=== PATIENT | male | born 1960 | race Caucasian/White ===

== ENCOUNTER 2020-09-28 07:16 | Emergency (ER) | payer OTHER, MEDICARE ==
[2020-09-28 09:30] LABS: BASOPHIL 0.6 % (0-2); EOSINOPHIL 0 % (0-5); HCT 49.7 % (42.0-52.0); HGB 16.2 g/dl (13.2-18.0); LYMPHOCYTE 19.3 % (15-48); MCH 29.7 pg (25.0-31.0); MCHC 32.6 g/dL (32.0-36.0); MPV 9.1 fL (6.0-9.5); NEUTROPHIL 67.3 % (41-80); NRBC 0; PLT 159 K/uL (150-400); RBC 5.46 M/uL (4.70-6.00); RDW 13.8 % (11.5-14.0); WBC 3.6 K/uL (4.0-10.5)
[2020-09-28 09:35] LABS: INR 1.13 (0.9-1.2); PROTHROMBIN TIME 13.8 SECONDS (11.4-13.6); PTT 28.3 SECONDS (22.2-34.7)
[2020-09-28 09:36] LABS: D-DIMER 2.43 ug/mLFEU (0.00-0.41)
[2020-09-28 09:38] LABS: PRO-BNP 24 pg/mL (<125)
[2020-09-28 09:39] LABS: ALBUMIN 2.9 g/dL (3.4-5.0); BILIRUBIN - TOTAL 0.2 mg/dL (0.2-1.0); BUN/CREAT RATIO (CALC) 17.2 RATIO; C-REACTIVE PROTEIN 2.9 mg/dL (<=0.90); CREATININE 0.93 mg/dL (0.67-1.17); GLOBULIN (CALCULATION) 3.2 g/dL; TOTAL PROTEIN 6.1 g/dL (6.4-8.2)
[2020-09-28 12:53] LABS: IRON % SATURATION 12.4 %SAT (20-50)
== END 2020-09-28 12:55 | disposition home or self-care (01) ==
LOC: FER 07:16
PROVIDERS: Emergency Medicine
DX: U07.1 COVID-19 (principal); E61.1 Iron deficiency; R53.81 Other malaise
CPT/HCPCS: 36415; 36600; 71250; 80053; 82728; 82803; 83540; 83550; 83605; 83615; 83735; 83880; 84145; 84484; 85025; 85379; 85610; 85730; 86140; 87040; 93005; J1885; J7030

== ENCOUNTER 2020-09-30 11:40 | Day surgery (SDCO) | payer OTHER, MEDICARE ==
[2020-09-30] MEDS ORDERED: ACID REDUCER200 MG PO (12:32)
[2020-09-30] MEDS ORDERED: ALLEGRA ALLERG180 MG PO (12:32)
[2020-09-30] MEDS ORDERED: BACLOFEN 10MG T10 MG PO (12:32)
[2020-09-30] MEDS ORDERED: FLONASE ALLER15.8 ML (12:33)
[2020-09-30] MEDS ORDERED: XANAX0.5 MG PO (12:34)
[2020-09-30] MEDS ORDERED: PERCOCET 5-3251 EACH PO (12:34)
[2020-09-30] MEDS ORDERED: ACIPHEX20 MG PO (12:34)
[2020-09-30] MEDS ORDERED: COLACE100 MG PO (12:35)
[2020-09-30 16:23] LABS: BASOPHIL 0.4 % (0-2); EOSINOPHIL 0.4 % (0-5); HGB 14.7 g/dl (13.2-18.0); LYMPHOCYTE 31.3 % (15-48); MCH 29.2 pg (25.0-31.0); MCHC 32.7 g/dL (32.0-36.0); MCV 89.5 fL (78.0-100.0); MONOCYTE 13.7 % (0-12); MPV 9.2 fL (6.0-9.5); NEUTROPHIL 53.8 % (41-80); NRBC 0; PLT 109 K/uL (150-400); RBC 5.03 M/uL (4.70-6.00); RDW 13.8 % (11.5-14.0); WBC 2.6 K/uL (4.0-10.5)
[2020-09-30 16:51] LABS: ALBUMIN 2.5 g/dL (3.4-5.0); BILIRUBIN - TOTAL 0.2 mg/dL (0.2-1.0); BUN/CREAT RATIO (CALC) 14.5 RATIO; C-REACTIVE PROTEIN 8.1 mg/dL (<=0.90); CREATININE 0.83 mg/dL (0.67-1.17); GLOBULIN (CALCULATION) 3.5 g/dL; MAGNESIUM 2.1 mg/dL (1.8-2.4); POTASSIUM 3.9 mmol/L (3.5-5.1)
[2020-09-30 18:00] LABS: BILIRUBIN NEGATIVE (NEGATIVE); BLOOD NEGATIVE Ery/uL (NEGATIVE); CLARITY CLEAR (CLEAR); COLOR YELLOW (YELLOW); GLUCOSE (U) NORMAL (NORMAL); LEUKOCYTES NEGATIVE Leu/uL (NEGATIVE); NITRITE NEGATIVE (NEGATIVE); PROTEIN NEGATIVE (NEGATIVE); SPECIFIC GRAVITY 1.015 (1.001-1.030); UROBILINOGEN 0.2 mg/dL (0.2-1.0)
[2020-10-02 06:51] LABS: BASOPHIL 0 % (0-2); EOSINOPHIL 0 % (0-5); HCT 42.7 % (42.0-52.0); HGB 14.4 g/dl (13.2-18.0); LYMPHOCYTE 10.9 % (15-48); MCH 30.2 pg (25.0-31.0); MCHC 33.7 g/dL (32.0-36.0); MCV 89.5 fL (78.0-100.0); MONOCYTE 6.5 % (0-12); MPV 9.6 fL (6.0-9.5); NEUTROPHIL 82.1 % (41-80); NRBC 0; PLT 150 K/uL (150-400); RBC 4.77 M/uL (4.70-6.00); RDW 13.9 % (11.5-14.0)
[2020-10-02 06:55] LABS: WBC 6.1 K/uL (4.0-10.5)
[2020-10-02 07:21] LABS: ALBUMIN 2.4 g/dL (3.4-5.0); BILIRUBIN - TOTAL 0.2 mg/dL (0.2-1.0); BUN/CREAT RATIO (CALC) 16.4 RATIO; C-REACTIVE PROTEIN 4.7 mg/dL (<=0.90); CREATININE 0.67 mg/dL (0.67-1.17); GLOBULIN (CALCULATION) 3.4 g/dL; POTASSIUM 3.9 mmol/L (3.5-5.1); TOTAL PROTEIN 5.8 g/dL (6.4-8.2)
[2020-10-02] MEDS ORDERED: ROBITUSSIN W/COD5 ML PO (11:51)
[2020-10-02] MEDS ORDERED: ASCORBIC ACID500 MG PO (11:51)
[2020-10-02] MEDS ORDERED: ZINC SULFATE220 MG PO (11:51)
[2020-10-02] MEDS ORDERED: B-1100 MG PO (11:51)
[2020-10-02] MEDS ORDERED: VITAMIN D310 MC3 PO (11:51)
[2020-10-02] MEDS ORDERED: DEXAMETHASONE 2M2 MG PO (11:51)
--- NOTE | 2020-10-02 15:06 | NUR ---
10/02/20 Patient lives at home with spouse. No discharge planning needs are anticipated.
== END 2020-10-02 14:40 | disposition home or self-care (01) ==
LOC: FMS 11:40
PROVIDERS: ADMIT Internal Medicine
DX: U07.1 COVID-19 (principal); J12.82 Pneumonia due to coronavirus disease 2019; M54.5 Low back pain; K21.9 Gastro-esophageal reflux disease without esophagitis; G47.30 Sleep apnea, unspecified; F41.9 Anxiety disorder, unspecified; E86.0 Dehydration; Z90.49 Acquired absence of other specified parts of digestive tract; Z98.1 Arthrodesis status; Z98.890 Other specified postprocedural states; Z88.1 Allergy status to other antibiotic agents; Z88.2 Allergy status to sulfonamides; Z91.041 Radiographic dye allergy status; Z91.09 Other allergy status, other than to drugs and biological substances; Z99.81 Dependence on supplemental oxygen
CPT/HCPCS: 36415; 36600; 71045; 80053; 81003; 82728; 82803; 83735; 85025; 86140; 87040; 94668; C9399; G0378; J1100; J1650; J1885; J2405; J3480; J7030; J7050; J8540

== ENCOUNTER 2021-05-02 15:22 | Emergency (ER) | payer OTHER, MEDICARE ==
[~2021-05-02 15:22] MED LIST: ACID REDUCER200 MG PO; ACIPHEX20 MG PO; ALLEGRA ALLERG180 MG PO; ASCORBIC ACID500 MG PO; B-1100 MG PO; BACLOFEN 10MG T10 MG PO; COLACE100 MG PO; DEXAMETHASONE 2M2 MG PO; FLONASE ALLER15.8 ML; PERCOCET 5-3251 EACH PO; ROBITUSSIN W/COD5 ML PO; VITAMIN D310 MC3 PO; XANAX0.5 MG PO; ZINC SULFATE220 MG PO
[2021-05-02 16:11] LABS: BASOPHIL 0.4 % (0-2); EOSINOPHIL 1.5 % (0-5); HCT 50.3 % (42.0-52.0); HGB 16.6 g/dl (13.2-18.0); LYMPHOCYTE 13.6 % (15-48); MCH 29.9 pg (25.0-31.0); MCV 90.6 fL (78.0-100.0); MONOCYTE 13.1 % (0-12); MPV 8.9 fL (6.0-9.5); NEUTROPHIL 71.2 % (41-80); NRBC 0; PLT 203 K/uL (150-400); RBC 5.55 M/uL (4.70-6.00); WBC 5.4 K/uL (4.0-10.5)
[2021-05-02 16:26] LABS: BUN/CREAT RATIO (CALC) 12.2 RATIO; CREATININE 0.98 mg/dL (0.67-1.17); POTASSIUM 4.1 mmol/L (3.5-5.1)
[2021-05-02 16:42] LABS: BILIRUBIN NEGATIVE (NEGATIVE); BLOOD 1+ Ery/uL (NEGATIVE); CLARITY CLEAR (CLEAR); COLOR YELLOW (YELLOW); GLUCOSE (U) NORMAL (NORMAL); LEUKOCYTES NEGATIVE Leu/uL (NEGATIVE); NITRITE NEGATIVE (NEGATIVE); PROTEIN NEGATIVE (NEGATIVE); UROBILINOGEN 0.2 mg/dL (0.2-1.0); pH 5.5 (5.0-9.0)
[2021-05-02 16:46] LABS: SQUAMOUS EPITHELIAL CELLS RARE; URINARY RBC RARE
[2021-05-02 17:29] LABS: CORONAVIRUS 2019 SARS-COV-2 NEGATIVE (NEGATIVE); INFLUENZA A NAA NEGATIVE (NEGATIVE)
[2021-05-02] MEDS ORDERED: PHENERGAN25 M1 PO (18:20)
[2021-05-02] MEDS ORDERED: LEVAQUIN500 MG PO (18:20)
== END 2021-05-02 18:40 | disposition home or self-care (01) ==
LOC: FER 15:22
PROVIDERS: Nurse Practitioner Family
DX: K51.30 Ulcerative (chronic) rectosigmoiditis without complications (principal); Z20.822 Contact with and (suspected) exposure to COVID-19; Z88.3 Allergy status to other anti-infective agents; Z91.041 Radiographic dye allergy status; Z88.1 Allergy status to other antibiotic agents; Z98.890 Other specified postprocedural states
CPT/HCPCS: 36415; 71045; 80048; 81001; 85025; J7030; U0002